=== PATIENT | male | born 1965 | race Caucasian/White ===

== ENCOUNTER 2021-08-24 09:50 | Outpatient (CLI) | payer SELFPAY ==
[2021-08-24 10:00] VITALS: BP 167/80; PULSE 42; RESP 18; TEMP 36.4; O2SAT 96; BMI 38.0
[2021-08-24 10:35] VITALS: BP 153/83; PULSE 40; RESP 18; TEMP 36.6; O2SAT 96
[2021-08-24 10:50] VITALS: BP 158/83; PULSE 40; RESP 17; TEMP 36.6; O2SAT 96
[2021-08-24 11:45] VITALS: BP 144/80; PULSE 39; RESP 16; TEMP 36.6; O2SAT 96
== END 2021-08-24 09:51 | disposition home or self-care (01) ==
LOC: OPS 09:55
PROVIDERS: PCP Nurse Practitioner Family; Visit Provider Nurse Practitioner Family
DX: U07.1 COVID-19 (principal)
CPT/HCPCS: 96365